=== PATIENT | female | born 1950 | race Caucasian/White ===

== ENCOUNTER 2018-09-29 12:57 | Outpatient (CLI) | payer OTHER ==
[2018-09-29] MEDS: SIMETHICONE/SOD BICARB/CIT AC 1 EACH PACKET PO ONE (13:55)
[2018-09-29] MEDS: BARIUM SULFATE 135 ML BOTTLE PO ONE (13:56)
--- NOTE | 2018-09-29 15:26 | XRAY Report ---
Reason: HOARSENESS,DYSPHAGIA Procedure Date: 09/29/2018 Accession Number: [id number] / [id number] Procedure: [place] - Esophogram CPT Code: FULL RESULT: EXAM: BARIUM ESOPHAGRAM EXAM DATE: 09/29/2018 01:49 PM. CLINICAL HISTORY: Hoarseness, dysphagia. COMPARISONS: None. TECHNIQUE: Routine double contrast esophagram. Fluoroscopy Time: 4 minutes 15 seconds. Number of Images: 47. FINDINGS: Swallowing Mechanism: Surgical clips are seen in the pharyngeal and hypopharyngeal region. Swallowing mechanism is normal. No anatomic defect is detected. Esophageal Motility: Mild esophageal spasm. Mucosa: Normal. No ulcerations or masses. Gastroesophageal Junction: Normal. No hernia, stricture, or significant reflux. Other: None. IMPRESSION: Mild esophageal spasm with no defect detected in swallowing or in the pharyngeal/hypopharyngeal region. RADIA
== END 2018-09-29 12:58 | disposition home or self-care (01) ==
LOC: DI 12:57
PROVIDERS: ATTEND Nurse Practitioner Acute Care
DX: K22.4 Dyskinesia of esophagus (principal); R13.10 Dysphagia, unspecified
CPT/HCPCS: 74220; A9270

== ENCOUNTER 2019-05-18 13:04 | Outpatient (CLI) | payer OTHER ==
--- NOTE | 2019-05-19 13:22 | SLEEP CARE CONSULTATION ---
Information from patient questionnaire entered by Kristy Blcakwood. I have reviewed and concur with the information entered by Kristy Blackwood. This document represents the service I personally performed and the decisions made by me, Nima Gillespie MD, [facility]. History of Present Illness Reason for Visit: New patient Chief Complaint: reports: Insomnia, Frequent awakenings at night, Other (TROUBLE GETTING BACK TO SLEEP) Duration of Symptoms: SEVERAL YEARS Usual bedtime: 11:00 PM Time it takes to fall asleep: 30 Snores at night: No Observed to quit breathing while asleep: No Number of times waking at night: 3 Reasons for waking at night: reports: Pain, Bathroom Toss, Turn, or Twitch while sleeping: No Recalls having dreams: No Usually gets out of bed at: 5:30-6:00 AM, BACK TO SLEEP, THEN UP AT 8:00AM EXCEPT WEDNESDAYS Morning headache: No Sleepy or fatigued during the day: Yes Ever fallen asleep while driving: No Takes day naps: No Dreams during day naps: No Prior sleep studies: No Additional HPI information: I had the pleasure of seeing Ms. Yeh today regarding the possibility of her having a sleep disorder. As you know, she is a 68 year old lady who complains of insomnia, mostly involves waking up during the night and her inability to fall back asleep. The patient tells me that she normally goes to bed around 11 pm, and it takes her approximately 15 minutes to fall asleep. She has not been told that she snores loudly or irregularly at night. She has never been observed to stop breathing in her sleep. She sleeps alone and sitting up because of gastroesophageal reflux disease. She can recall waking up on the average of 3 times during the night. Most of the time she wakes up because of being stiff. She has difficulty falling back asleep. She has never awakened because of her own snoring, choking, or having to gasp for air. There is a lot of tossing and turning in her sleep. No somniloquy (sleep talking) or somnambulism (sleep walking). In the morning she usually gets up out of the bed around 8 a.m. not feeling refreshed nor rested. She usually does not have a morning headache. During the day she complains of feeling fatigued but not sleepy. Her score on [place] Sleepiness Scale is 4 out of 24. She has never fallen asleep while driving nor has had any accident due to sleepiness. She usually does not take naps during the day except once a month. Subjective Initial [place] Sleepiness Scale score: 4 Past Medical History Past Medical History: reports: Hypertension, Fibromyalgia, GERD, Other (MULTIPLE SCLEROSIS, THYROID CANCER, TOTAL THYROIDECTOMEY (APR 2018 STAGE 1), HYPERCHOLESTEROLEMIA, TMJ, ALLERGIC RHINITIS, OSTEOPENIA) Social History The patient's occupation is a RE. Patient is Single and lives in . Have you smoked in the past 12 months: No Alcohol use: No Caffeine use: Yes Caffeine amount and frequency: 2 CUPS BEFORE NOON Family History Family history of sleep disordered breathing: Yes Family Hx Sleep Apnea: Sibling: Sleep apnea - Treated Review of Systems Weight gain over past 5 years: 20LBS Cardiovascular: reports: high blood pressure, leg or foot swelling Gastrointestinal: reports: heartburn Urinary: reports: incontinence, frequency, urgency Neurological: reports: gait or balance problems (MULTIPLE SCLEROSIS) Psychiatric: reports: depression (NOT IN PAST 5 YEARS) Ear/Nose/Throat: reports: nasal congestion, dry mouth/throat (CHRONIC DRY EYES/MOUTH), tonsillectomy, wisdom teeth removed, other Endocrine: reports: thyroid disease, history of goiter, too hot or cold (TOO HOT) Musculoskeletal: reports: joint pain, neck pain, back pain, muscle pain or cramping, mobility problems Immunologic: reports: sneezing, allergies to food or environment Physical Exam Vital signs obtained and entered by: Dr. Gillespie Blood Pressure: 140/70 Cuff size: regular Heart Rate: 75 O2 Saturation: 98 Height: 5 ft 9 in Weight (kg): 200 lb Body Mass Index: 29.5 BMI Classification: Overweight Neck circumference: 14 HEENT: No craniofacial malformation Nostrils: patent to airflow Turbinates: normal Septum: midline Mouth and throat: narrow oropharynx Soft palate: long Hard palate: normal Uvula: normal Uvula visualization: 50% Mallampati Class II Tongue: normal in size Tonsils: absent bilaterally Chin and jaw: normal size and position Neck: normal w/o lymphadenopathy or thyromegaly Heart: regular rate and rhythm Lungs: clear bilaterally Abdomen: soft Extremities: no edema or clubbing Neurologic: intact Impression and Plan IMPRESSION: 1. Insomnia, due to excessive time spent in bed of 9 hours (from 11 pm to 8 am). Therefore, staying up during the night for an hour is appropriate assuming the normal sleep requirement of 8 hours a night. A sleep study will be performed to see if she has sleep disrupting conditions. Risk factors for obstructive sleep apnea-hypopnea include hypertension and obesity. I informed the patient of what the sleep studies involve and after some discussion, she agreed to proceed. In the meantime, she should reduce the time spent in bed to 8 hours. This could be achieved by simply go to bed later at midnight. Plan: 1. Schedule polysomnography and return in 1 to 2 weeks after the study to discuss result and initiate therapy. 2. Avoid long distance driving or when feeling sleepy. 3. Avoid alcohol, sedative and muscle relaxant around bedtime. 4. Attempt to lose weight. 5. Maintain a regular wake up time and spend no more than 8 hours in bed at night. Avoid naps. I spent 100% of this 15 minute visit face to face with the patient with greater than 50% of this was spent time counseling the patient and coordination of care.
[2019-05-19 13:23] VITALS: BP 140/70
== END 2019-05-18 13:05 | disposition home or self-care (01) ==
LOC: SC 13:04
PROVIDERS: ATTEND Internal Medicine Pulmonary Disease
DX: G47.00 Insomnia, unspecified (principal); I10 Essential (primary) hypertension
CPT/HCPCS: 99203; 99212

== ENCOUNTER 2019-06-08 19:55 | Outpatient (CLI) | payer OTHER | END 2019-06-08 19:56 | disposition home or self-care (01) | LOC: SC 19:55 | PROVIDERS: ATTEND Internal Medicine Pulmonary Disease | DX: G47.00 Insomnia, unspecified (principal); R53.83 Other fatigue | CPT/HCPCS: 95810 ==

== ENCOUNTER 2019-07-14 10:45 | Outpatient (CLI) | payer OTHER ==
--- NOTE | 2019-07-14 13:15 | SLEEP CARE CONSULTATION ---
Information from patient questionnaire entered by Yara Steven. I have reviewed and concur with the information entered by Yara Steven. This document represents the service I personally performed and the decisions made by me, Nima Gillespie MD, [facility]. History of Present Illness Initial Clear Sleepiness Scale score: 4 Current Clear Sleepiness Scale score: 1 Additional HPI information: HPI: returned for follow up of the sleep study she had on 06/08/2019. The polysomnography showed that the patient had normal sleep efficiency. The sleep architecture was relatively normal considering the first-night effect. Respiratory monitoring showed no significant sleep disordered breathing (AHI = 4.2) or hypoxia (yash oxygen saturation of 89%). The patient only slept supine with head elevated during this study (supine AHI = 4.2; non-supine = 0.00). No audible snore. There was no significant periodic leg movement of sleep. Cardiac rhythm was normal sinus rhythm with occasional premature ventricular contractions. No abnormal behavior (parasomnia) observed during the night. The patient was informed of these findings. I explained to her that the sleep study was normal. Allergies and Home Medications Drug allergies reviewed: Yes Home medication list reviewed: Yes Review of Systems Review of systems same as previous: Yes Physical Exam Weight: 200 lb Impression and Plan IMPRESSION: 1. Insomnia, resolved with the patient spending 1 less hour in bed. She says she keep the bedtime the same but wake up an hour earlier. PLAN: 1. Continue to maintain a regular wake up time and spend no more than 8 hours in bed at night. Avoid naps. 2. Return to the sleep clinic on as needed basis. I spent 100% of this 20 minute visit face to face with the patient with greater than 50% of this was spent time counseling the patient and coordination of care.
== END 2019-07-14 10:46 | disposition home or self-care (01) ==
LOC: SC 10:45
PROVIDERS: ATTEND Internal Medicine Pulmonary Disease
DX: G47.00 Insomnia, unspecified (principal)
CPT/HCPCS: 99212; 99213

== ENCOUNTER 2019-12-07 14:21 | Outpatient (CLI) | payer OTHER ==
--- NOTE | 2019-12-16 10:10 | Mammography Report ---
Reason: ROUTINE MAMMO Procedure Date: 12/07/2019 Accession Number: [id number] / [id number] Procedure: [facility] - Screening Mammo w/Tree CPT Code: Final Report FULL RESULT: EXAM: Screening Mammo w/Tree DATE: 12/07/2019 2:56 PM CLINICAL HISTORY: Routine screening TECHNIQUE: (B) - Bilateral CC and MLO views were obtained. COMPARISON: 03/21/2017, 02/22/2016, 01/17/2016, 10/18/2014, 11/03/2013, 09/15/2012 and 09/17/2011 [facility] PARENCHYMAL PATTERN: (A) - The breasts demonstrate scattered fibroglandular densities bilaterally. FINDINGS: No significant interval change. There are no suspicious masses, calcifications, or areas of distortion. Stable faint left breast nodules. IMPRESSION: Negative examination. BI-RADS category 1. RECOMMENDATION: (ANNUAL) - Recommend routine annual screening mammography. BI-RADS CATEGORY: (1) - Negative. STANDARD QUALIFYING STATEMENTS: 1. This examination was not reviewed with the aid of Computer-Aided Detection (CAD). 2. A negative or benign imaging report should not preclude biopsy if clinically suspicious findings are present. 3. Dense breasts may obscure an underlying neoplasm. 4. This examination was reviewed with the aid of 3D breast imaging (tomosynthesis).
== END 2019-12-07 14:22 | disposition home or self-care (01) ==
LOC: DI 14:21
PROVIDERS: ATTEND Nurse Practitioner Acute Care
DX: Z12.31 Encounter for screening mammogram for malignant neoplasm of breast (principal)
CPT/HCPCS: 77063; 77067